=== PATIENT | male | born 1975 | race Caucasian/White ===

== ENCOUNTER 2018-04-02 09:08 | Emergency (ER) | payer BC ==
[2018-04-02] MEDS ORDERED: NS 0.9% 1000 ML* 1,000 ML IV ONE (09:16)
[2018-04-02] MEDS ORDERED: Morphine INJ** 4 MG/ML 1 ML CARPUJECT IV ONE (09:17)
[2018-04-02] MEDS ORDERED: Pantoprazole IV* 40 MG IV ONE (09:17)
[2018-04-02] MEDS ORDERED: Ondansetron INJ* 2 MG/ML VIAL IV ONE (09:17)
[2018-04-02] MEDS ORDERED: Morphine INJ* 2 MG/ML 1 ML SYRINGE (TWO MG - NEW SYRINGE VERSION) ONE ×2 (09:23→12:11)
[2018-04-02] MEDS ORDERED: Morphine INJ* 2 MG/ML 1 ML SYRINGE (TWO MG - NEW SYRINGE VERSION) IV ONE (09:31)
[2018-04-02 09:33] LABS: ABS Basophils 0 10^3/ul (0-0.2); ABS Eosinophils 0 10^3/ul (0-0.6); ABS Lymphocytes 0.2 10^3/ul (1.0-4.8); ABS Monocytes 0.8 10^3/ul (0-0.8); ABS Neutrophils 6.8 10^3/ul (1.5-7.7); ABS Nucleated RBC 0 10^3/ul; Eosinophil % 0.1 % (0-6); Hematocrit 46 % (42-52); Hemoglobin 16.2 g/dl (14.0-18.0); Lymphocyte % 2.8 % (25-47); Mean Corpuscular HGB Conc 35 g/dl (31-36); Mean Corpuscular Hemoglobin 33 pg (27-31); Mean Corpuscular Volume 94 fL (80-94); Mean Platelet Volume 6.9 um3 (7.4-10.4); Nucleated Red Blood Cells % 0; Platelet Count 369 10^3/ul (150-450); Red Blood Count 4.92 10^6/ul (4.00-5.40); Red Cell Distribution Width 12 % (10.5-15); White Blood Count 7.8 10^3/ul (3.5-10.8)
[2018-04-02 09:42] LABS: INR 0.79 (0.77-1.02)
--- NOTE | 2018-04-02 09:54 | ED ---
Abdominal Pain/Male - HPI Summary HPI Summary: This is scrlb Collins documenting for attending Aris Aguilar MD. This patient is a 43 year old M BIBA to [facility] with a chief complaint of RLQ abdominal pain. The patient rates the pain 5/10 in severity. Patient reports hematemesis, shaking, and numbness in extremities. He last threw up this morning 07:00. Patient denies nausea currently. He reports that he has been drinking beer for the last 3 days straight. - History of Current Complaint Chief Complaint: EDAbdPain Stated Complaint: ABD PAIN Time Seen by Provider: 04/02/18 09:15 Hx Obtained From: Patient Onset/Duration: Sudden Onset, Still Present Timing: Constant Severity Initially: Moderate Severity Currently: Moderate Pain Intensity: 5 Pain Scale Used: 0-10 Numeric Location: Discrete At: RLQ Radiates: No Associated Signs And Symptoms: Positive: Vomiting - hematemesis, Other - shaking , numbness in extremities. Negative: Nausea - denies nausea currently - Allergies/Home Medications Allergies/Adverse Reactions: Allergies Allergy/AdvReac Type Severity Reaction Status Date / Time No Known Allergies Allergy Verified 04/02/18 09:13 Home Medications: Home Medications hydrOXYzine HCL TAB* [Atarax 10 MG TAB*] 10 mg PO QID PRN 04/02/18 [History Confirmed 04/02/18] PMH/Surg Hx/FS Hx/Imm Hx GI History: Reports: Other GI Disorders - Hx Colitis Sensory History: Denies: Hx Deafness - Surgical History Surgery Procedure, Year, and Place: Back surgery Infectious Disease History: No Infectious Disease History: Denies: Traveled Outside the [place] in Last 30 Days - Family History Known Family History: Positive: Cardiac Disease, Diabetes, Other - Crohn's disease - Social History Alcohol Use: Daily Substance Use Type: Reports: None Smoking Status (MU): Heavy Every Day Tobacco Smoker Review of Systems Positive: Other - Shaking Positive: Abdominal Pain - RLQ pain, Vomiting - hematemesis. Negative: Nausea - denies nausea currently Positive: Other - numbness in extremities All Other Systems Reviewed And Are Negative: Yes Physical Exam - Summary Physical Exam Summary: Appearance: Well appearing, no pain distress Skin: warm, dry, reflects adequate perfusion Head/face: normal Eyes: EOMI, DIONNE ENT: normal. Mucous membranes moist, no blood in oropharynx. Neck: supple, non-tender Respiratory: CTA, breath sounds present. Tachypnea. Cardiovascular: RRR, pulses symmetrical Abdomen: No guarding, no rebound. Tenderness in RLQ. Bowel Sounds: present Musculoskeletal: normal, strength/ROM intact Neuro: normal, sensory motor intact, A&Ox3 Triage Information Reviewed: Yes Vital Signs On Initial Exam: Initial Vitals Temp Pulse Resp BP Pulse Ox 98.6 F 86 28 127/75 100 04/02/18 09:10 04/02/18 09:10 04/02/18 09:10 04/02/18 09:10 04/02/18 09:10 Vital Signs Reviewed: Yes Diagnostics - Vital Signs Vital Signs Temp Pulse Resp BP Pulse Ox 04/02/18 09:31 12 04/02/18 09:16 89 19 95 04/02/18 09:15 82 14 122/79 99 04/02/18 09:10 98.6 F 86 28 127/75 100 - Laboratory Lab Results: Lab Results 04/02/18 04/02/18 Range/Units 09:27 09:27 WBC 7.8 (3.5-10.8) 10^3/ul RBC 4.92 (4.00-5.40) 10^6/ul Hgb 16.2 (14.0-18.0) g/dl Hct 46 (42-52) % MCV 94 (80-94) fL MCH 33 H (27-31) pg MCHC 35 (31-36) g/dl RDW 12 (10.5-15) % Plt Count 369 (150-450) 10^3/ul MPV 6.9 L (7.4-10.4) um3 Neut % (Auto) 86.9 H (38-83) % Lymph % (Auto) 2.8 L (25-47) % Smyth % (Auto) 9.8 H (0-7) % Eos % (Auto) 0.1 (0-6) % Baso % (Auto) 0.4 (0-2) % Absolute Neuts (auto) 6.8 (1.5-7.7) 10^3/ul Absolute Lymphs (auto) 0.2 L (1.0-4.8) 10^3/ul Absolute Monos (auto) 0.8 (0-0.8) 10^3/ul Absolute Eos (auto) 0 (0-0.6) 10^3/ul Absolute Basos (auto) 0 (0-0.2) 10^3/ul Absolute Nucleated RBC 0 10^3/ul Nucleated RBC % 0 INR (Anticoag Therapy) 0.79 (0.77-1.02) APTT 27.6 (26.0-36.3) seconds Result Diagrams: 04/02/18 09:27 04/02/18 09:27 Lab Statement: Any lab studies that have been ordered have been reviewed, and results considered in the medical decision making process. - Radiology Chest X-Ray Radiology Interpretation Completed By: Radiologist - NO ACTIVE CARDIOPULMONARY DISEASE IS NOTED. ED Physician has reviewed this report. - CT Abd/Pelvis CT CT Interpretation Completed By: Radiologist - No definite evidence of appendicitis is noted. No free fluid is identified. There is likely hepatic steatosis noted. No other masses or fluid collections are noted. ED Physician has reviewed this report. - EKG No standard instances Cardiac Rate: NL - 84 BPM EKG Rhythm: Sinus Rhythm ST Segment: Normal EKG Interpretation: EKG taken at 09:35. Normal interval and normal axis. Re-Evaluation - Re-Evaluation 1 Re-Evaluation Time: 11:04 Change: Improved Comment: Pain has improved greatly. Patient looks much better. 2 Re-Evaluation Time: 12:05 Comment: Informed patient of imaging results. Dicussed using a nasogastric intubation with the patient. Abdominal Pain Fem Course/Dx - Diagnoses Provider Diagnoses: Alcoholic gastritis, RLQ abdominal pain, History of ulcerative colitis, Upper GI bleed Discharge - Sign-Out/Discharge Documenting (check all that apply): Patient Departure - D/C - Discharge Plan Condition: Improved Disposition: HOME Prescriptions: Famotidine TAB* [Pepcid 20 MG TAB*] 20 mg PO BID #30 tab Pantoprazole TAB (NF) [Protonix TAB (NF)] 40 mg PO DAILY #30 tab Sucralfate [Carafate] 1 gm PO Q4H #60 tablet Patient Education Materials: Gastritis (ED), Diet for Stomach Ulcers and Gastritis (ED), Abuse of Alcohol (ED) Referrals: No Primary Care Phys,NOPCP [Primary Care Provider] - Additional Instructions: 1. Call your records officer in [place] on Wednesday morning to follow-up promptly. 2. Discontinue use of alcohol, anti-inflammatory medications, spicy foods or acidic foods. 3. Tripp diet, drink plenty of fluids. 4. Return to ER with increased pain, vomiting blood, worse or other concerns as discussed. 5. Call your family doctor first thing on Wednesday to follow-up. - Billing Disposition and Condition Condition: IMPROVED Disposition: Home
[2018-04-02 09:55] LABS: EGFR Non-African American 97.5 (>60)
[2018-04-02] MEDS ORDERED: Iohexol 300* (CONTRAST) 10 ML SDV IV ONE (10:19)
--- NOTE | 2018-04-02 10:22 | RAD ---
Indication: Abdominal pain. Single frontal view of the chest performed at 0950 hours was reviewed. No prior study is available for comparison. No mediastinal shift is noted. Heart is of normal size and configuration. Lung castillo appear clear. IMPRESSION: NO ACTIVE CARDIOPULMONARY DISEASE IS NOTED.
[2018-04-02] MEDS ORDERED: Pantoprazole IV* 80 MG in NS 0.9% 250 ML* 250 ML IV SCH (10:30)
[2018-04-02 10:45] LABS: Urine Red Blood Cell Absent (Absent); Urine White Blood Cell Trace(0-5/hpf) (Absent)
[2018-04-02 11:01] LABS: Urine Appearance Clear; Urine Blood 1+ (Negative); Urine Color Yellow; Urine Ketones 1+ (Negative); Urine Protein 1+(30 mg/dL) (Negative); Urine Specific Gravity 1.006 (1.010-1.030); Urine Urobilinogen Negative (Negative)
[2018-04-02] MEDS ORDERED: Morphine VIAL* 4 MG/ML VIAL (1 ml vial) IV ONE (12:00)
--- NOTE | 2018-04-02 12:00 | RAD ---
Indication: Right lower quadrant pain. Contrast: Administered 88.0 ml of OMNIPAQUE 300 mg/ml CT of the abdomen and pelvis was performed after oral and IV contrast administration. Coronal and sagittal reconstructed images were obtained. The lung bases demonstrate no pleural fluid, nodules or masses. Heart is of normal size without evidence of pericardial effusion. The liver is normal in size. It is diffusely decreased in density consistent with hepatic steatosis. No focal lesions or intrahepatic ductal dilatation is noted. The gallbladder demonstrates no calcified gallstones. No pericholecystic fluid or wall thickening is identified. The common duct is not dilated. The pancreas demonstrates no mass or pancreatic duct dilatation. The spleen is normal in size. No adrenal lesions are noted. The kidneys demonstrate symmetric nephrograms without focal lesions. No hydronephrosis is noted. Aorta and inferior vena cava are unremarkable. No dilated loops of bowel are noted. CT of the pelvis demonstrates no evidence of appendicitis. The appendix is not demonstrated. No free fluid is identified. The urinary bladder is unremarkable. The prostate and seminal vesicles are grossly unremarkable. Contrast is noted in the right colon. No focal thickening of the colon is identified. The bony structures are grossly unremarkable. IMPRESSION: No definite evidence of appendicitis is noted. No free fluid is identified. There is likely hepatic steatosis noted. No other masses or fluid collections are noted. No evidence of colitis is noted.
[2018-04-02] MEDS ORDERED: Morphine INJ* 2 MG/ML 1 ML CARPUJECT IV ONE (12:02)
[2018-04-02] MEDS ORDERED: Lidocaine 2% JELLY* 10 ML JELLY TOPICAL ONE (12:07)
[2018-04-02] MEDS ORDERED: Lidocaine 2% JELLY* 6 ML JELLY TOPICAL ONE (12:13)
[2018-04-02 12:38] VITALS: BP 146/89
== END 2018-04-02 12:50 | disposition home or self-care (01) ==
LOC: ED 09:08
DX: K29.21 Alcoholic gastritis with bleeding (principal); F17.200 Nicotine dependence, unspecified, uncomplicated; Z87.19 Personal history of other diseases of the digestive system
CPT/HCPCS: 36415; 71045; 74177; 80053; 80320; 81003; 81015; 82550; 83605; 83690; 85025; 85610; 85730; 86140; 86850; 86900; 86901; 87086; 93005; 96361; 96374; 96375; 96376; 99285; A9270-GY; G0480; J2270; J2405; Q9967